=== PATIENT | female | born 1960 | race Caucasian/White ===

== ENCOUNTER 2016-07-17 23:55 | Emergency (ER) | payer MEDICAID ==
[~2016-07-17] VITALS: Ht 160 cm; Wt 80.0 kg
[~2016-07-17 23:55] MED LIST: BENA40TA54 PO
[2016-07-17 23:59] VITALS: Ht 160 cm; Wt 80.0 kg
--- NOTE | 2016-07-18 01:21 | RADRPT ---
PROCEDURE: XR right shoulder. CLINICAL INDICATION: Pain in the right shoulder. TECHNIQUE: AP, Internal and external rotation views of the right shoulder were performed. COMPARISON: None. FINDINGS: There is normal osseous mineralization and alignment. No acute fracture or osseous lesion is identified. There are normal joints without evidence of arthritis or dislocation. The soft tissues are unremarkable. IMPRESSION: Unremarkable right shoulder. RPTAT: [facility] Physician [place] Date Time Electronically viewed and signed by Physician Savanna on 07/18/2016 01:20 RS/
[2016-07-18] MEDS ORDERED: KETOROLAC 30 MG INJ IM STA (01:32)
[2016-07-18] MEDS ORDERED: TRAM50TA2 PO (01:57)
--- NOTE | 2016-07-18 02:12 | ERD ---
ER Documentation Chief Complaint Date/Time DATE: 07/18/16 TIME: 02:10 Chief Complaint right shoulder pain x 5 days,denies injury HPI 56-year-old female presents to the emergency department with right shoulder pain for the past 5 days. 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 Is described as achy, worse with abduction, she states that it is better when she keeps to her side. She denies any fevers or chills. No weakness. ROS All systems reviewed and are negative except as per history of present illness. Medications Home Meds Active Scripts Tramadol HCl (Tramadol HCl) 50 Mg Tablet, 50 MG PO Q4 Y for PAIN, #20 TAB Prov:JEYSON ARBOLEDA PA-C 07/18/16 Reported Medications Benazepril Hcl* (Lotensin*) 40 Mg Tablet, PO DAILY 04/24/12 Allergies Allergies: Coded Allergies: No Known Allergy (Unverified , 10/10/13) PMhx/Soc History of Surgery: Yes (TUBAL LIGATION, HYSTERECTOMY; KIDNEY) Anesthesia Reaction: No Hx Neurological Disorder: No Hx Respiratory Disorders: No Hx Cardiac Disorders: Yes (HTN) Hx Psychiatric Problems: No Hx Miscellaneous Medical Probl: No Hx Alcohol Use: No Hx Substance Use: No Hx Tobacco Use: No Physical Exam Vitals Vital Signs Date Time Temp Pulse Resp B/P Pulse Ox O2 Delivery O2 Flow Rate FiO2 07/17/16 23:59 97.8 101 20 128/84 100 Physical Exam General: Well-developed, well-nourished. The patient appears in no acute distress. HEENT: Head is normocephalic, atraumatic. No scleral icterus. Neck: Supple. Nontender. Lungs: Clear to auscultation. Normal air movement. Heart: Regular rate and rhythm. S1 and S2 are normal. No murmurs, gallops, or rubs. Abdomen: Nondistended. Extremities: Right shoulder has limited range of motion with abduction, no bony deformities, patient is distally neurovascularly intact, there is no erythema, warmth. Neurologic: Alert and oriented 3. No focal deficits. Normal speech and gait. Skin: Normal turgor. No rash or lesions. Results 24 hrs Current Medications Medications (Trade) Dose Ordered Sig/Yimi Route PRN Reason Start Time Stop Time Status Last Admin Dose Admin Ketorolac Tromethamine (Toradol) 30 mg ONCE STAT IM 07/18/16 01:32 07/18/16 01:33 DC 07/18/16 01:54 Procedures/MDM PROCEDURE: XR right shoulder. CLINICAL INDICATION: Pain in the right shoulder. TECHNIQUE: AP, Internal and external rotation views of the right shoulder were performed. COMPARISON: None. FINDINGS: There is normal osseous mineralization and alignment. No acute fracture or osseous lesion is identified. There are normal joints without evidence of arthritis or dislocation. The soft tissues are unremarkable. IMPRESSION: Unremarkable right shoulder. RPTAT: [facility] Date Time Electronically viewed and signed by Physician Savanna on 07/18/2016 01:20 ER course: Patient was given Toradol for pain, her right shoulder was placed in a sling for comfort. MDM: 56-year-old female comes in with right shoulder pain, consistent with shoulder tendinitis. There is no evidence of a fracture, dislocation, infectious origin. No neuropraxia, weakness associated. Departure Diagnosis: Primary Impression: Rotator cuff tendonitis Condition: Good Patient Instructions: Tendonitis Additional Instructions: Call your primary care doctor TOMORROW for an appointment during the next 1-2 days.See the doctor sooner or return here if your condition worsens before your appointment time. JEYSON ARBOLEDA PA-C Jul 18, 2016 02:11
== END 2016-07-18 02:43 | disposition home or self-care (01) ==
LOC: FTE 23:55
DX: M75.101 Unspecified rotator cuff tear or rupture of right shoulder, not specified as traumatic (principal); I10 Essential (primary) hypertension
CPT/HCPCS: 73030; 96372; J1885; Z7502